=== PATIENT | female | born 1990 | race Two or more races ===

== ENCOUNTER 2019-11-21 16:41 | Emergency (ER) | payer MEDICAID ==
--- NOTE | 2019-11-21 17:31 | ER Document Report ---
HPI - HPI Patient complains to provider of: Burning on urination Time Seen by Provider: 11/21/19 17:29 Onset: Just prior to arrival Onset/Duration: Sudden Quality of pain: No pain Context: This 28-year-old female presented to the emergency room today stating that she had frequency urgency burning upon urination. Associated Symptoms: None Exacerbated by: Denies Relieved by: Denies Similar symptoms previously: No Recently seen / treated by doctor: No Past Medical History - General Information source: Patient - Social History Smoking Status: Never Smoker Cigarette use (# per day): No Chew tobacco use (# tins/day): No Smoking Education Provided: No Frequency of alcohol use: None Drug Abuse: None Family History: None Vertical Provider Document - CONSTITUTIONAL Agree With Documented VS: Yes - INFECTION CONTROL TRAVEL OUTSIDE OF THE [place] IN LAST 30 DAYS: Yes - HEENT HEENT: Atraumatic, Conjuctival Injection, Normocephalic, PERRLA - NECK Neck: Normal Inspection, Supple - RESPIRATORY Respiratory: Breath Sounds Normal - CARDIOVASCULAR Cardiovascular: Regular Rate, Regular Rhythm - GI/ABDOMEN Gastrointestinal: Abdomen Soft, Abdomen Non-Tender - REPRODUCTIVE Female Genitalia: Normal Inspection - BACK Back: Normal Inspection - MUSCULOSKELETAL/EXTREMETIES Musculoskeletal/Extremeties: MAEW - NEURO Level of Consciousness: Awake, Alert Motor/Sensory: No Motor Deficit - DERM Integumentary: Warm Course - Re-evaluation Re-evalutation: 11/21/19 18:17 Patient I had a long conversation about the fact that she does not fact have a urinary tract infection patient was certainly not surprised by that she has no nausea no vomiting and feels as though she is able to take down p.o. food fluid and hold her medicine. - Vital Signs Vital signs: Temp Pulse Resp BP Pulse Ox 98.8 F 91 16 110/75 98 11/21/19 16:47 11/21/19 16:47 11/21/19 16:47 11/21/19 16:47 11/21/19 16:47 - Laboratory Laboratory results interpreted by me: 11/21/19 18:16 Labs- All tests 24 hr 11/21/19 17:35 Urine Color YELLOW Urine Appearance CLOUDY Urine pH 6.0 Ur Specific [place] 1.019 Urine Protein 100 H Urine Glucose (UA) NEGATIVE Urine Ketones TRACE H Urine Blood LARGE H Urine Nitrite NEGATIVE Urine Bilirubin NEGATIVE Urine Urobilinogen NEGATIVE Ur Leukocyte Esterase MODERATE H Urine WBC (Auto) >182 Urine RBC (Auto) >182 Urine WBC Clumps MANY Squamous Epi Cells Auto 7 Urine Yeast (Budding) PRESENT Urine Ascorbic Acid NEGATIVE Urine HCG, Qual NEGATIVE Discharge - Discharge Clinical Impression: Urinary tract infection Qualifiers: Urinary tract infection type: site unspecified Hematuria presence: without hematuria Qualified Code(s): N39.0 - Urinary tract infection, site not specified Condition: Good Disposition: HOME, SELF-CARE Instructions: Urinary Tract Infection ([facility]), Urinary Anesthetic Agent ([facility]), Nitrofurantoin ([facility]) Prescriptions: Nitrofurantoin Monohyd/M-Cryst [Macrobid 100 mg Capsule] 100 mg PO BID #20 cap Phenazopyridine HCl [Pyridium 200 mg Tablet] 200 mg PO TID #15 tablet
[2019-11-21 17:59] LABS: APPEARANCE,URINE CLOUDY; BILIRUBIN,URINE NEGATIVE (NEGATIVE); COLOR,URINE YELLOW; GLUCOSE, URINE NEGATIVE (NEGATIVE); KETONES,URINE TRACE mg/dL (NEGATIVE); LEUKOCYTE ESTERASE,URINE MODERATE (NEGATIVE); NITRITE,URINE NEGATIVE (NEGATIVE); PROTEIN,URINE 100 mg/dL (NEGATIVE); URINE SPECIFIC GRAVITY 1.019; UROBILINOGEN,URINE NEGATIVE mg/dL (<2.0)
[2019-11-21] MEDS ORDERED: CEFTRIAXONE INJ 1000 MG VIAL IM ONE (18:17)
[2019-11-21] MEDS ORDERED: LIDOCAINE 1% INJ-PF (10 MG/ML) 30 ML SDV NEB ONE (18:17)
[2019-11-21] MEDS ORDERED: LIDOCAINE 1% INJ-PF (10 MG/ML) 30 ML SDV IM ONE (18:19)
[2019-11-21 18:27] VITALS: BP 126/70
== END 2019-11-21 18:36 | disposition home or self-care (01) ==
LOC: ER 16:41
DX: N39.0 Urinary tract infection, site not specified (principal)
CPT/HCPCS: 99283; 96372; 81025; 81001; J3490; J0696